=== PATIENT | female | born 1935 | race Caucasian/White ===

== ENCOUNTER 2021-06-20 07:34 | Emergency (ER) | payer OTHER ==
[~2021-06-20] VITALS: Ht 160 cm; Wt 72.7 kg
[2021-06-20] MEDS ORDERED: ESTR42.510 VG (08:52)
[2021-06-20] MEDS ORDERED: PANT40TA54 PO (08:52)
[2021-06-20] MEDS ORDERED: RISP0.2515 PO (08:52)
[2021-06-20] MEDS ORDERED: LEVO150T11 PO (08:52)
[2021-06-20] MEDS ORDERED: WARF4TAB72 PO (08:52)
[2021-06-20 09:39] LABS: BASOPHILS % (AUTO) 0.5 % (0.0-2.0); EOSINOPHILS % (AUTO) 1.5 % (1.0-6.0); HEMATOCRIT 31.7 % (36-46); HEMOGLOBIN 10.6 g/dL (12.0-16.0); LYMPHOCYTES # (AUTO) 1.3 K/uL (1.0-4.8); LYMPHOCYTES % (AUTO) 20.4 % (22.0-44.0); MEAN CORPUSCULAR HEMOGLOBIN 30.4 pg (26.0-34.0); MEAN CORPUSCULAR HGB CONC 33.4 G/dL (31.0-37.0); MEAN CORPUSCULAR VOLUME 91 fL (80-100); MONOCYTES # (AUTO) 0.6 K/uL (0.1-1.0); MONOCYTES % (AUTO) 9.2 % (2.0-9.0); NEUTROPHILS # (AUTO) 4.5 K/uL (1.8-7.7); NEUTROPHILS % (AUTO) 68.4 % (40.0-70.0); PLATELET COUNT (AUTO) 300 K/uL (150-450); RED BLOOD CELL COUNT(AUTO) 3.48 MIL/uL (4.00-5.20); RED CELL DISTRIBUTION WIDTH 15.7 % (11.5-14.5)
[2021-06-20 09:50] LABS: PROTHROMBIN TIME 10.5 SEC (9.4-11.6)
[2021-06-20 09:53] LABS: AMMONIA 11 umol/L (11-32)
[2021-06-20 09:55] LABS: TROPONIN I < 0.02 ng/mL (0.00-0.05)
[2021-06-20 09:57] LABS: LACTIC ACID 0.8 mmol/L (0.4-2.0)
[2021-06-20 10:01] LABS: CALCIUM, TOTAL 9.7 mg/dL (8.8-10.5); CREATININE 1.07 mg/dL (0.60-1.30)
[2021-06-20 10:03] LABS: FREE T4 (FREE THYROXINE) 0.22 ng/dL (0.76-1.46)
[2021-06-20 10:11] LABS: AMPHET/METH SCREEN,URINE NEGATIVE (NEGATIVE); BARBITURATE SCREEN, URINE NEGATIVE (NEGATIVE); BENZODIAZEPINES SCREEN,URINE NEGATIVE (NEGATIVE); CANNABINOID SCREEN,URINE NEGATIVE (NEGATIVE); COCAINE SCREEN,URINE NEGATIVE (NEGATIVE); METHADONE SCREEN, URINE NEGATIVE (NEGATIVE); OPIATE SCREEN,URINE NEGATIVE (NEGATIVE)
[2021-06-20 10:12] LABS: ALBUMIN 3.8 g/dL (3.4-5.0); BILIRUBIN,TOTAL 0.4 mg/dL (0.1-1.0); TOTAL PROTEIN, SERUM 8.1 g/dL (6.4-8.2)
[2021-06-20 10:20] LABS: APPEARANCE,URINE CLOUDY (CLEAR); BILIRUBIN,URINE NEGATIVE (NEGATIVE); GLUCOSE, URINE (UA) NEGATIVE (NEGATIVE); KETONES,URINE NEGATIVE (NEGATIVE); LEUKOCYTE ESTERASE ,URINE NEGATIVE (NEGATIVE); NITRATE,URINE POSITIVE (NEGATIVE); OCCULT BLOOD,URINE NEGATIVE (NEGATIVE); PROTEIN,URINE NEGATIVE (NEGATIVE); UROBILINOGEN,URINE 0.2 mg/dL (<=1.0)
[2021-06-20 10:21] LABS: PHENCYCLIDINE SCREEN,URINE NEGATIVE (NEGATIVE)
[2021-06-20 10:25] LABS: THYROID STIMULATING HORMONE 171.33 uIU/mL (0.36-3.74)
[2021-06-20 10:35] LABS: BACTERIA,URINE Many /HPF (None Seen); RBC,URINE 0-2 /HPF (0-2); RENAL EPITHELIAL CELLS,URINE Few /LPF (None Seen); SQUAMOUS EPITHELIAL CELL,UR Few /LPF (None Seen); WBC,URINE 0-2 /HPF (0-5)
[2021-06-20 11:35] VITALS: BP 122/70
[2021-06-20 11:35] LABS: COVID AG,FIA SOURCE NASOPHARYNGEAL
[2021-06-20] MEDS ORDERED: SODIUM CHLORIDE 0.9% 1,000 ML IV ONE (11:45)
== END 2021-06-20 13:45 | disposition short-term general hospital (02) ==
LOC: EMS 07:40
DX: F03.90 Unspecified dementia, unspecified severity, without behavioral disturbance, psychotic disturbance, mood disturbance, and anxiety (principal); R55 Syncope and collapse; E03.9 Hypothyroidism, unspecified; E11.9 Type 2 diabetes mellitus without complications; E78.00 Pure hypercholesterolemia, unspecified; Z88.2 Allergy status to sulfonamides; Z88.6 Allergy status to analgesic agent; Z20.822 Contact with and (suspected) exposure to COVID-19; W19.XXXA Unspecified fall, initial encounter; Y93.89 Activity, other specified; Y92.89 Other specified places as the place of occurrence of the external cause; Y99.8 Other external cause status
CPT/HCPCS: 36415; 70450; 71045; 72125; 73521; 80053; 80307; 81001; 82140; 82550; 83605; 84439; 84443; 84484; 85025; 85610; 85730; 87040; 87077; 87086; 87186; 87426; 93005; 96360; 99285; J7030; 51702